=== PATIENT | female | born 1990 | race American Indian/Alaskan Native ===

== ENCOUNTER 2018-02-02 10:28 | Emergency (ER) | payer BC, MEDICAID ==
[2018-02-02 10:58] VITALS: BP 114/75
[2018-02-02 11:49] LABS: Bilirubin,Urine NEG (Negative); Blood,Urine NEG (Negative); Color,Urine Yellow (Yellow); Mucus,Urine FEW /HPF; Protein,Urine <15 mg/dL mg/dL (Negative); Urobilinogen,Urine < 2.0 mg/dL (<2.0); WBC,Urine < 1.0 /HPF (0.0-6.0)
[2018-02-02] MEDS ORDERED: TYLENOL PO ONE (12:05)
[2018-02-02] MEDS ORDERED: ZOFRAN IV ONE (12:05)
[2018-02-02] MEDS ORDERED: NACL 0.9% 1000 ML 1,000 ML IV ONE (12:05)
[2018-02-02 12:35] LABS: Basophils % (Auto) 0.1 % (0.0-1.8); Eosinophils # (Auto) 0.4 K/mm3 (0.0-0.4); Eosinophils % (Auto) 5.2 % (0.0-4.3); Hematocrit 39.7 % (30.3-42.9); Hemoglobin 13.7 gm/dl (10.1-14.3); Lymphocytes # (Auto) 0.8 K/mm3 (1.2-5.4); Lymphocytes % (Auto) 12.4 % (13.4-35.0); Mean Corpuscular HGB Conc 35 % (30-34); Mean Corpuscular Hemoglobin 32 pg (28-32); Mean Corpuscular Volume 94 fl (79-97); Monocytes # (Auto) 0.5 K/mm3 (0.0-0.8); Monocytes % (Auto) 6.7 % (0.0-7.3); Platelet Count 219 K/mm3 (140-440); Red Blood Count 4.23 M/mm3 (3.65-5.03); Red Cell Distribution Width 13.1 % (13.2-15.2)
[2018-02-02 12:52] LABS: BUN/Creatinine Ratio 8; Blood Urea Nitrogen 3 mg/dL (7-17); Calcium 9.4 mg/dL (8.4-10.2); Hemolysis Index 5
--- NOTE | 2018-02-02 14:07 | Emergency Department Report ---
Upper Respiratory HPI - HPI Chief Complaint: Dyspnea/Respdistress Stated Complaint: DIFFICULTY BREATHING Time Seen by Provider: 02/02/18 11:51 Duration: 1 week URI Symptoms: Rhinorrhea: Yes, Sore Throat: No, Ear Pain: No, Cough: Yes, Shortness of Breath: No, Sick Contacts: No, Unable to Take Fluids: Yes, Urine Output Abnormal: No, Listless Behavior: No Other History: This is a 27-year-old female 6 weeks nontoxic, well nourished in appearance, no acute signs of distress presents to the ED with c/o of productive cough, nausea, vomiting, rhinorrhea, nasal congestion x1 week. Patient describes productive cough as yellow mucus production. Patient denies any sick contact. Patient denies any recent travels, long car, recent hospital stays. Patient denies any calf pain or calf tenderness. Patient denies any chest pain, short of breath, fever, chills, nausea, vomiting, hemoptysis, numbness, tingling, headache or stiff neck. Patient denies any vaginal bleeding or abdominal pain. Patient deneis any allergies or PMH. - Home Meds and Allergies Home Medications: Previous Rx's Medication Instructions Recorded Last Taken Type Cyclobenzaprine HCl [Flexeril 5mg] 5 mg PO TID PRN #30 tablet 03/15/15 Unknown Rx HYDROcodone/APAP 5-325 [[place] 1 each PO Q6HR PRN #20 tablet 03/15/15 Unknown Rx 5/325] Ibuprofen [Motrin] 800 mg PO Q8H PRN #30 tablet 03/15/15 Unknown Rx Sulfamethoxazole/Trimethoprim 1 each PO BID #14 tablet 03/15/15 Unknown Rx [Bactrim Ds] Azithromycin [Zithromax Z-SHILOH] 250 mg PO DAILY #6 tablet 02/02/18 Unknown Rx Metoclopramide [Reglan] 10 mg PO TID PRN #30 tab 02/02/18 Unknown Rx Allergies/Adverse Reactions: Allergies Allergy/AdvReac Type Severity Reaction Status Date / Time No Known Allergies Allergy Verified 10/22/14 08:31 ED Review of Systems ROS: Stated complaint: DIFFICULTY BREATHING Other details as noted in HPI Constitutional: denies: chills, fever Eyes: denies: eye pain, eye discharge, vision change ENT: denies: ear pain, throat pain Respiratory: cough. denies: shortness of breath, wheezing Cardiovascular: denies: chest pain, palpitations Endocrine: no symptoms reported Gastrointestinal: nausea, vomiting. denies: abdominal pain, diarrhea Genitourinary: denies: urgency, dysuria, discharge Musculoskeletal: denies: back pain, joint swelling, arthralgia Skin: denies: rash, lesions Neurological: denies: headache, weakness, paresthesias Psychiatric: denies: anxiety, depression Hematological/Lymphatic: denies: easy bleeding, easy bruising ED Past Medical Hx - Past Medical History Previous Medical History?: No Hx Hypertension: No Hx Congestive Heart Failure: No Hx Diabetes: No Hx Deep Vein Thrombosis: No Hx Renal Disease: No Hx Sickle Cell Disease: No Hx Seizures: No Hx Asthma: No Hx COPD: No Hx HIV: No - Surgical History Past Surgical History?: No - Social History Smoking Status: Current Every Day Smoker Substance Use Type: Alcohol, Marijuana - Medications Home Medications: Home Medications Medication Instructions Recorded Confirmed Last Taken Type Cyclobenzaprine HCl [Flexeril 5mg] 5 mg PO TID PRN #30 tablet 03/15/15 Unknown Rx HYDROcodone/APAP 5-325 [[place] 1 each PO Q6HR PRN #20 tablet 03/15/15 Unknown Rx 5/325] Ibuprofen [Motrin] 800 mg PO Q8H PRN #30 tablet 03/15/15 Unknown Rx Sulfamethoxazole/Trimethoprim 1 each PO BID #14 tablet 03/15/15 Unknown Rx [Bactrim Ds] Azithromycin [Zithromax Z-SHILOH] 250 mg PO DAILY #6 tablet 02/02/18 Unknown Rx Metoclopramide [Reglan] 10 mg PO TID PRN #30 tab 02/02/18 Unknown Rx ED Bronchiolitis Physical Exam - Exam General: Vital signs noted. No distress. Alert and acting appropriately. Neurologic: Alert and oriented, no deficits. Musculoskeletal: Unremarkable. ED Physical Exam - General Limitations: No Limitations General appearance: alert, in no apparent distress - Head Head exam: Present: atraumatic, normocephalic - Eye Eye exam: Present: normal appearance Pupils: Present: normal accommodation - ENT ENT exam: Present: normal exam, mucous membranes moist - Neck Neck exam: Present: normal inspection, full ROM. Absent: tenderness, meningismus, lymphadenopathy - Respiratory Respiratory exam: Present: normal lung sounds bilaterally. Absent: respiratory distress, wheezes, rales, rhonchi, stridor, chest wall tenderness, accessory muscle use, decreased breath sounds, prolonged expiratory - Cardiovascular Cardiovascular Exam: Present: regular rate, normal rhythm, normal heart sounds. Absent: bradycardia, tachycardia, irregular rhythm, systolic murmur, diastolic murmur, rubs, gallop - GI/Abdominal GI/Abdominal exam: Present: soft, normal bowel sounds. Absent: distended, tenderness, guarding, rebound, rigid, diminished bowel sounds - Rectal Rectal exam: Present: deferred - Extremities Exam Extremities exam: Present: normal inspection, full ROM, normal capillary refill - Back Exam Back exam: Present: normal inspection, full ROM - Neurological Exam Neurological exam: Present: alert, oriented X3, normal gait - Psychiatric Psychiatric exam: Present: normal affect, normal mood - Skin Skin exam: Present: warm, dry, intact, normal color. Absent: rash ED Course Vital Signs 02/02/18 10:51 Temperature 98.7 F Pulse Rate 66 Blood Pressure 114/75 O2 Sat by Pulse 98 Oximetry - Reevaluation(s) Reevaluation #1: 02/02/18 14:04 Patient is speaking in full sentences with no signs of distress noted. - Consultations Consultation #1: 02/02/18 14:04 Patient has been consulted with Dr. Cano about patient history, physical exam , and labs and examined and screened patient and agrees to ED plan of care and discharge plan of care. ED Medical Decision Making - Lab Data Result diagrams: 02/02/18 11:56 02/02/18 11:56 - Medical Decision Making This is a 27-year-old female that presents with bronchitis. Patient is stable and was examined by me and Dr. Cano. Chest x-ray has not been obtained due to . Due to patient having symptoms of bronchitis and worsening I will treat patient empirically with zpak. Patient was instructed to increase hydration and rest. Patient received Zofran, 1 L normal saline in the ED. Patient stated that symptoms have resolved and nausea and vomiting. A by mouth challenge of 3 apple juices has been obtained and patient tolerated well. Labs within normal limits. D-dimmer negative. Vitals stable. Patient is nonfebrile and normal heart rate. Patient was instructed Follow-up with a primary care doctor in 3-5 days or if symptoms worsen and continue return to emergency room as soon as possible. At time time of discharge, the patient does not seem toxic or ill in appearance. No acute signs of distress noted. Patient agrees to discharge treatment plan of care. No further questions noted by the patient. Critical care attestation.: If time is entered above; I have spent that time in minutes in the direct care of this critically ill patient, excluding procedure time. ED Disposition Clinical Impression: Bronchiolitis Disposition: DC- TO HOME OR SELFCARE Is pt being admited?: No Does the pt Need Aspirin: No Condition: Stable Instructions: Acute Bronchitis (ED), Azithromycin (By mouth) Additional Instructions: Follow-up with a primary care doctor in 3-5 days or if symptoms worsen and continue return to emergency room as soon as possible. Prescriptions: Azithromycin [Zithromax Z-SHILOH] 250 mg PO DAILY #6 tablet Metoclopramide [Reglan] 10 mg PO TID PRN #30 tab PRN Reason: Nausea Referrals: PRIMARY CARE, [Primary Care Provider] - 3-5 Days MONSE WHITLEY MD [Staff Physician] - 3-5 Days [facility] [Outside] - 3-5 Days [facility] [Outside] - 3-5 Days Forms: Work/School Release Form(ED)
== END 2018-02-02 14:17 | disposition home or self-care (01) ==
LOC: ED 10:28
DX: J21.9 Acute bronchiolitis, unspecified (principal); F17.200 Nicotine dependence, unspecified, uncomplicated; F12.10 Cannabis abuse, uncomplicated; R11.2 Nausea with vomiting, unspecified
CPT/HCPCS: 36415; 80048; 81001; 85025; 85379; 96374; 99283; J2405; J7030

== ENCOUNTER 2019-03-06 10:09 | Outpatient (CLI) | payer MEDICAID ==
[2019-03-06] MEDS ORDERED: LACTATED RINGERS 500 ML IV ONE (10:58)
[2019-03-06 11:10] VITALS: BP 107/60
--- NOTE | 2019-03-06 12:21 | Event Note ---
Date: 03/06/19 c/o contractions, decreased FM and SOB. She woke up with SOB, no CP, no palpitations. Has a history of bronchitis, denies cough, fever chills n/v. Also history of GERD. Symptoms feel the same as GERD except worse. [place] like something was coming up. Now states babies moving well. O2 sat 100% RA. No s/s distress. No UC's, cervix closed, FHT's cat 1x2. She refused CXR. Exts: no edema, NT. Lungs: CTAB Will allow home GERD prevention strategies discussed. PTL precautions given. Keep appointment with office and MFM as scheduled.
== END 2019-03-06 13:36 | disposition home or self-care (01) ==
LOC: TRG 10:09
PROVIDERS: ATTEND Obstetrics & Gynecology
DX: O36.8120 Decreased fetal movements, second trimester, not applicable or unspecified (principal); O26.892 Other specified pregnancy related conditions, second trimester; R25.2 Cramp and spasm; R06.02 Shortness of breath; Z3A.26 26 weeks gestation of pregnancy; Z87.891 Personal history of nicotine dependence
CPT/HCPCS: 36415; 59025; 82731; J7120; 96360

== ENCOUNTER 2019-04-25 19:00 | Outpatient (CLI) | payer MEDICAID ==
[2019-04-25 20:05] VITALS: BP 109/61
--- NOTE | 2019-04-25 22:00 | Ultrasound Report ---
Limited OB ultrasound FINDINGS: Twin gestation is seen with the largest amniotic fluid pocket for baby B at 5.2 cm. Biophysical profile for baby A FINDINGS: breathing, movement, tone and qualitative SAROJ all score to a total of 8/8. hear t rate is 146 bpm Biophysical profile for baby B Baby B also scores 8/8. heart rate is 142 bpm Signer Name: Anthony Lake MD Signed: 04/25/2019 9:56 PM Workstation Name: [id number]
== END 2019-04-25 20:31 | disposition home or self-care (01) ==
LOC: TRG 19:00 → LD 19:42 → TRG 20:31
PROVIDERS: ATTEND Obstetrics & Gynecology
DX: O47.03 False labor before 37 completed weeks of gestation, third trimester (principal); Z3A.33 33 weeks gestation of pregnancy
CPT/HCPCS: 76815; 76819

== ENCOUNTER 2019-05-15 20:12 | Inpatient (IN) | payer MEDICAID ==
[2019-05-15] MEDS ORDERED: ZOFRAN IV PRN (21:32)
[2019-05-15] MEDS ORDERED: BRETHINE IVP PRN (21:32)
[2019-05-15] MEDS ORDERED: XYLOCAINE 2% INFILTRATI ONE (21:32)
[2019-05-15] MEDS ORDERED: MINERAL OIL PO PRN (21:32)
[2019-05-15] MEDS ORDERED: BRETHINE SUB-Q PRN (21:32)
[2019-05-15] MEDS ORDERED: PITOCin/NS 20 UNIT/1000ML DRIP 20 UNITS/1,000 ML BAG IV SCH (22:00)
[2019-05-15] MEDS ORDERED: LACTATED RINGERS 1,000 ML IV SCH (22:00)
[2019-05-15 22:26] LABS: Hematocrit 33.2 % (30.3-42.9); Hemoglobin 11.6 gm/dl (10.1-14.3); Mean Corpuscular HGB Conc 35 % (30-34); Mean Corpuscular Volume 96 fl (79-97); Platelet Count 149 K/mm3 (140-440); Red Blood Count 3.46 M/mm3 (3.65-5.03); Red Cell Distribution Width 13.5 % (13.2-15.2)
[2019-05-15] MEDS ORDERED: CERVIDIL VG ONE (23:15)
--- NOTE | 2019-05-16 00:07 | Ultrasound Report ---
US OB limited INDICATION / CLINICAL INFORMATION: twin IOL. COMPARISON: 05/13/2019 FINDINGS: Intrauterine twin . Both twins are in cephalic presentation. Ultrasound estimated gestational age 36 weeks 1 day IMPRESSION: 1. Both twins are in cephalic presentation. Signer Name: Angelito Bennett MD Signed: 05/16/2019 12:03 AM Workstation Name: [id number]
--- NOTE | 2019-05-16 00:22 | History and Physical Report ---
History of Present Illness Date of examination: 05/16/19 Date of admission: 05/15/19 20:12 Chief complaint: IOL per [facility] for twin gestation both with abnormal dopplers and twin B IUGR History of present illness: Menstrual History Regularity: regular Duration: 3 LMP: 09/04/2018 LMP reliability: definite LMP character: normal test type: urine test Date: 10/21/2018 BC at conception: none Planned ? no EDC Calculations LMP: 06/11/2019 Past History : 3 Term Births: 1 Premature Births: 0 Living Children: 1 Para: 1 Mult. Births: 0 Prev : 0 Aborta: 1 Elect. Ab: 1 Spont. Ab: 0 Ectopics: 0 # 1 Delivery date: 03/07/2015 Weeks Gestation: 41 Delivery type: Vaginal Anesthesia type: epidural Delivery location: [facility] Infant Sex: female weight: 7.25 Comments: postterm IOL; GBS+; # 2 Delivery date: 01/2018 Delivery type: EAB Comments: medcal Past Medical History: Reviewed history from 01/23/2014 and no changes required: Negative Past Medical History Past Surgical History: Reviewed history from 07/11/2014 and no changes required: Right breast biopsy 2009- benign Family History Summary: Reviewed history Last on 01/11/2016 and no changes required:10/21/2018 General Comments - FH: Family History of Asthma Family History of Diabetes Family History of Hypertension FamHx Cancer-unknown type Social History: Marital Status: Children: 1 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 of genital herpes: no Genetic History Congenital Heart Defect: Mom: no Dad: no Shade Disease: Mom: no Dad: no Thalassemia Mom: no Dad: no Neural Tube Defect Mom: no Dad: no Down's Syndrome Mom: no Dad: no Chivo-Sachs Mom: no Dad: no Sickle Cell Disease/Trait Mom: no Dad: no Hemophilia Mom: no Dad: no Muscular Dystrophy Mom: no Dad: no Cystic Fibrosis Mom: no Dad: no [place] Chorea Mom: no Dad: no Mental Retardation Mom: no Dad: no Fragile X Mom: no Dad: no Other Genetic/Chromosomal Disorder Mom: no Dad: no Child w/other defect Mom: no Dad: no Active Medications (reviewed today): LO LOESTRIN FE 1 MG-10 MCG / 10 MCG ORAL TABLET (NORETHIN-ETH ESTRAD-FE BIPHAS) 1 po q day as directed TYLENOL WITH CODEINE #3 300-30 MG ORAL TABLET (ACETAMINOPHEN-CODEINE) 1-2 po q 4 hrs prn pain IBUPROFEN 800 MG ORAL TABLET (IBUPROFEN) NEXPLANON 68 MG SUBCUTANEOUS IMPLANT (ETONOGESTREL) Current Allergies (reviewed today): No known allergies Past History Past Medical History: other (see HPI) Past Surgical History: other (see HPI) 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) Family/Genetic History: other (see HPI) Social history: other (see HPI) - Obstetrical History Expected Date of Delivery: 06/13/19 Actual Gestation: 36 Week(s) 0 Day(s) : 3 Para: 1 Hx # Term Pregnancies: 1 Number of Pregnancies: 0 Spontaneous Abortions: 0 Induced : 1 Number of Living Children: 1 Medications and Allergies Allergies Allergy/AdvReac Type Severity Reaction Status Date / Time No Known Allergies Allergy Verified 10/22/14 08:31 Home Medications Medication Instructions Recorded Confirmed Last Taken Type Cyclobenzaprine HCl [Flexeril 5mg] 5 mg PO TID PRN #30 tablet 03/15/15 Unknown Rx HYDROcodone/APAP 5-325 [[place] 1 each PO Q6HR PRN #20 tablet 03/15/15 Unknown Rx 5/325] Ibuprofen [Motrin] 800 mg PO Q8H PRN #30 tablet 03/15/15 Unknown Rx Sulfamethoxazole/Trimethoprim 1 each PO BID #14 tablet 03/15/15 Unknown Rx [Bactrim Ds] Azithromycin [Zithromax Z-SHILOH] 250 mg PO DAILY #6 tablet 02/02/18 Unknown Rx Metoclopramide [Reglan] 10 mg PO TID PRN #30 tab 02/02/18 Unknown Rx Active Meds: Active Medications Ephedrine Sulfate (Ephedrine Sulfate) 10 mg IV Q2M PRN PRN Reason: Hypotension Oxytocin/Sodium Chloride (Pitocin/Ns 20 Unit/1000ml Drip) 20 units in 1,000 mls @ 125 mls/hr IV DIRECT ROSALINO Lactated Ringer's (Lactated Ringers) 1,000 mls @ 125 mls/hr IV DIRECT ROSALINO Mineral Oil (Mineral Oil) 30 ml PO QHS PRN PRN Reason: Constipation Ondansetron HCl (Zofran) 4 mg IV Q8H PRN PRN Reason: Nausea And Vomiting Terbutaline Sulfate (Brethine) 0.25 mg SUB-Q ONCE PRN PRN Reason: Hyperstimulation/Hypertonicity Terbutaline Sulfate (Brethine) 0.25 mg IVP ONCE PRN PRN Reason: Hyperstimulation/Hypertonicity Review of Systems All systems: negative Genitourinary: contractions - Vital Signs Vital signs: Vital Signs Pulse BP 89 121/66 05/15/19 20:38 05/15/19 20:38 Temp Pulse Resp BP Pulse Ox 89 121/66 05/15/19 20:38 05/15/19 20:38 - Physical Exam Breasts: Cardiovascular: Regular rate, Normal S1, Normal S2 Lungs: Positive: Clear to auscultation, Normal air movement Abdomen: Positive: normal appearance, soft, normal bowel sounds. Negative: distention, tenderness Genitourinary (Female): Positive: normal external genitalia, normal perenium Vulva: both: normal Vagina: Positive: normal moisture. Negative: discharge Cervix: Negative: lesion, discharge Uterus: Positive: normal size, normal contour Adnexa: both: normal Anus/Rectum: Positive: normal perianal skin, heme negative. Negative: rectal mass, hemorrhoids Extremities: Deep Tendon Reflex Grade: Normal +2 - Obstetrical FHR: auscultation normal Uterine Contraction Monitor Mode: External Cervical Dilatation: 0 station: -3 Uterine Contraction Pattern: Irregular Uterine Tone Measurement Phase: Contraction Uterine Contraction Intensity: Mild Results Result Diagrams: 05/15/19 21:25 Abnormal lab results 05/15/19 Range/Units 21:25 RBC 3.46 L (3.65-5.03) M/mm3 MCH 33 H (28-32) pg MCHC 35 H (30-34) % All other labs normal. Ultrasound: report reviewed (both cephalic) Assessment and Plan 28 y.o. IUP at 36w 1d presents for scheduled IOL per recommendation of MFM for abnormal dopplers of both twin A and twin B, IUGR of twin B. Routine admission orders in EMR. GBS is negative. SVE closed. Cervidil placed by RN. Will continue to monitor. Anticipate .
--- NOTE | 2019-05-16 03:47 | Event Note ---
Date: 05/16/19 Called to room by RN d/t pt c/o of "being frustrated and took monitors off". Pt c/o monitors being uncomfortable, she has taken monitors and belts off and they are lying on the floor. Pt reports she is hot and she wants to get out of bed. DWP why it is necessary to monitor babies while medication is in place. Offered to attempt to adjust monitors so we can monitor her while she is OOB, offered pain medications, but explained that she will have to be in bed d/t fall risk after receiving IV narcotics. She does not respond verbally to offers or suggestions to assist in comforting her. Reviewed reason for recommendation of IOL by M and explained to patient that she has the right to refuse monitoring but that we will have to remove the cervidil. Patient ambulated to the bathroom. Will assess pts willingness to replace monitors when she returns to bed. After, RN reports she is requesting medication for pain. Pt is back in bed, monitors in place. SVE yields no change in SVE, offered to remove cervidil d/t pt stating "its making my vagina hurt". Patient declines and elects to leave cervidil in place. Order for stadol one time dose to be given IV, now. Patient agrees to continue with current POC.
[2019-05-16] MEDS ORDERED: STADOL IV ONE (03:48)
[2019-05-16] MEDS ORDERED: STADOL ONE (03:50)
--- NOTE | 2019-05-16 05:38 | Progress Note ---
Assessment and Plan Pt c/o increasing pain and pressure with ctx SVE 2,80,-1 ISE clear fluid noted Bolus for epidural Fentanyl given to help pt relax Re-eval as needed Subjective - Subjective Date of service: 05/16/19 (ISE applied Clear fluid) Principal diagnosis: Di/Di twin gestation @ 36w IOL Patient reports: contractions Objective - Vital Signs Vital Signs: Vital Signs - 12hr 05/15/19 05/16/19 05/16/19 20:38 02:04 02:06 Pulse Rate 89 67 72 Respiratory Rate Blood Pressure 121/66 O2 Sat by Pulse 94 84 Oximetry 05/16/19 05/16/19 05/16/19 02:11 02:13 02:16 Pulse Rate 76 74 Respiratory Rate Blood Pressure O2 Sat by Pulse 100 90 99 Oximetry 05/16/19 05/16/19 05/16/19 02:21 02:26 02:31 Pulse Rate 75 76 76 Respiratory Rate Blood Pressure O2 Sat by Pulse 100 99 99 Oximetry 05/16/19 05/16/19 05/16/19 02:36 02:41 02:46 Pulse Rate 85 70 79 Respiratory Rate Blood Pressure O2 Sat by Pulse 99 99 98 Oximetry 05/16/19 05/16/19 05/16/19 02:51 02:56 03:01 Pulse Rate 73 77 70 Respiratory Rate Blood Pressure O2 Sat by Pulse 98 99 99 Oximetry 05/16/19 05/16/19 05/16/19 03:06 03:11 03:16 Pulse Rate 77 76 74 Respiratory Rate Blood Pressure O2 Sat by Pulse 99 100 100 Oximetry 05/16/19 05/16/19 05/16/19 03:18 03:23 03:28 Pulse Rate 39 L 115 H Respiratory Rate Blood Pressure O2 Sat by Pulse 82 L 69 L 81 L Oximetry 05/16/19 05/16/19 05/16/19 03:35 03:42 04:09 Pulse Rate 69 Respiratory Rate Blood Pressure 133/68 O2 Sat by Pulse 83 L 94 Oximetry 05/16/19 05/16/19 05/16/19 04:38 05:08 05:12 Pulse Rate 66 68 Respiratory 16 Rate Blood Pressure O2 Sat by Pulse 100 99 Oximetry 05/16/19 05/16/19 05/16/19 05:17 05:23 05:28 Pulse Rate 70 75 75 Respiratory Rate Blood Pressure O2 Sat by Pulse 100 99 99 Oximetry - Exam Breasts: deferred Cardiovascular: Regular rate Lungs: Normal air movement Abdomen: Present: normal appearance, soft. Absent: distention, tenderness Uterus: Present: normal FHR: auscultation normal Uterine Contraction Monitor Mode: Internal Cervical Dilatation: 2 (ISE on Twin A ) Cervical Effacement Percentage: 80 (Cervidil removed) station: -1 Uterine Contraction Pattern: Regular Uterine Tone Measurement Phase: Resting Uterine Contraction Intensity: Moderate Extremities: normal Deep Tendon Reflex Grade: Normal +2 - Labs Labs: Abnormal Labs 05/15/19 21:25 RBC 3.46 L MCH 33 H MCHC 35 H Laboratory Results - last 24 hr 05/15/19 05/15/19 21:25 21:25 WBC 6.9 RBC 3.46 L Hgb 11.6 Hct 33.2 MCV 96 MCH 33 H MCHC 35 H RDW 13.5 Plt Count 149 Blood Type O POSITIVE Antibody Screen Negative
[2019-05-16] MEDS ORDERED: SUBLIMAZE ONE (05:51)
--- NOTE | 2019-05-16 06:38 | Progress Note ---
Assessment and Plan notified of cervical chg. Pt comfortable with epidural Anticipate delivery. Subjective - Subjective Date of service: 05/16/19 (epidural placed) Principal diagnosis: Di/Di twin gestation @ 36w IOL Patient reports: movement normal, contractions Objective - Vital Signs Vital Signs: Vital Signs - 12hr 05/15/19 05/16/19 05/16/19 20:38 02:04 02:06 Pulse Rate 89 67 72 Respiratory Rate Blood Pressure 121/66 O2 Sat by Pulse 94 84 Oximetry 05/16/19 05/16/19 05/16/19 02:11 02:13 02:16 Pulse Rate 76 74 Respiratory Rate Blood Pressure O2 Sat by Pulse 100 90 99 Oximetry 05/16/19 05/16/19 05/16/19 02:21 02:26 02:31 Pulse Rate 75 76 76 Respiratory Rate Blood Pressure O2 Sat by Pulse 100 99 99 Oximetry 05/16/19 05/16/19 05/16/19 02:36 02:41 02:46 Pulse Rate 85 70 79 Respiratory Rate Blood Pressure O2 Sat by Pulse 99 99 98 Oximetry 05/16/19 05/16/19 05/16/19 02:51 02:56 03:01 Pulse Rate 73 77 70 Respiratory Rate Blood Pressure O2 Sat by Pulse 98 99 99 Oximetry 05/16/19 05/16/19 05/16/19 03:06 03:11 03:16 Pulse Rate 77 76 74 Respiratory Rate Blood Pressure O2 Sat by Pulse 99 100 100 Oximetry 05/16/19 05/16/19 05/16/19 03:18 03:23 03:28 Pulse Rate 39 L 115 H Respiratory Rate Blood Pressure O2 Sat by Pulse 82 L 69 L 81 L Oximetry 05/16/19 05/16/19 05/16/19 03:35 03:42 04:09 Pulse Rate 69 Respiratory Rate Blood Pressure 133/68 O2 Sat by Pulse 83 L 94 Oximetry 05/16/19 05/16/19 05/16/19 04:38 05:08 05:12 Pulse Rate 66 68 Respiratory 16 Rate Blood Pressure O2 Sat by Pulse 100 99 Oximetry 05/16/19 05/16/19 05/16/19 05:17 05:23 05:28 Pulse Rate 70 75 75 Respiratory Rate Blood Pressure O2 Sat by Pulse 100 99 99 Oximetry 05/16/19 05/16/19 05/16/19 05:32 05:59 06:11 Pulse Rate 67 76 80 Respiratory Rate Blood Pressure 131/85 O2 Sat by Pulse 100 100 Oximetry 05/16/19 05/16/19 05/16/19 06:14 06:16 06:21 Pulse Rate 68 75 70 Respiratory Rate Blood Pressure O2 Sat by Pulse 93 98 100 Oximetry 05/16/19 05/16/19 05/16/19 06:23 06:26 06:30 Pulse Rate 67 73 66 Respiratory Rate Blood Pressure 140/87 142/90 128/85 O2 Sat by Pulse 99 Oximetry 05/16/19 05/16/19 06:31 06:32 Pulse Rate 69 67 Respiratory Rate Blood Pressure 138/87 O2 Sat by Pulse 99 Oximetry - Exam Breasts: deferred Cardiovascular: Regular rate Lungs: Normal air movement Abdomen: Present: normal appearance, soft. Absent: distention, tenderness Uterus: Present: normal FHR: auscultation normal Uterine Contraction Monitor Mode: Internal (Baby A) Cervical Dilatation: 7 Cervical Effacement Percentage: 100 station: -1 Uterine Contraction Pattern: Regular Uterine Tone Measurement Phase: Resting Uterine Contraction Intensity: Moderate Extremities: normal Deep Tendon Reflex Grade: Normal +2 - Labs Labs: Abnormal Labs 05/15/19 21:25 RBC 3.46 L MCH 33 H MCHC 35 H Laboratory Results - last 24 hr 05/15/19 05/15/19 21:25 21:25 WBC 6.9 RBC 3.46 L Hgb 11.6 Hct 33.2 MCV 96 MCH 33 H MCHC 35 H RDW 13.5 Plt Count 149 Blood Type O POSITIVE Antibody Screen Negative
[2019-05-16] MEDS ORDERED: NARCAN 2 MG/2 ML IV PRN (06:39)
--- NOTE | 2019-05-16 06:39 | Anesthesia Consultation ---
Anesthesia Consult and Med Hx Date of service: 05/16/19 - Airway Anesthetic Teeth Evaluation: Chipped ROM Head & Neck: Adequate Mental/Hyoid Distance: Adequate Mallampati Class: Class II Intubation Access Assessment: Probably Good - Pulmonary Exam CTA: Yes - Cardiac Exam Cardiac Exam: RRR - Pre-Operative Health Status ASA Pre-Surgery Classification: ASA2 Proposed Anesthetic Plan: Epidural - Pulmonary Hx Asthma: No COPD: No Hx Pneumonia: No - Cardiovascular System Hx Hypertension: No - Central Nervous System Hx Seizures: No Hx Psychiatric Problems: No - Endocrine Hx Renal Disease: No Hx End Stage Renal Disease: No Hx Hypothyroidism: No Hx Hyperthyroidism: No - Hematic Hx Anemia: No Hx Sickle Cell Disease: No - Other Systems Hx Alcohol Use: No
[2019-05-16] MEDS ORDERED: fentaNYL-BUPIV 2 MCG/ML-0.125% 200 MCG/100 ML BAG EPIDURAL SCH (07:00)
--- NOTE | 2019-05-16 08:31 | Procedure Note ---
OB Delivery Note - Delivery Date of Delivery: 05/16/19 Surgeon: WES SAN (present for delivery) Hospice Rn: FELICITAS DAVIS Estimated blood loss: 300cc - Vaginal Delivery presentation: vertex Intrapartum events: other(please specify) (IOL @ 36 w Vtx/Vtx Di/Di twin Baby B IUGR) Delivery induction: cervidil Delivery augmentation: rupture of membranes Delivery monitor: internal FHT (Baby A) Route of delivery: Delivery placenta: spontaneous Delivery cord: 3 umbilical vessels Episiotomy: none Delivery laceration: none Anesthesia: epidural Delivery comments: Pt c/o rectal pressure NICU and RT called to room [place] beds prepared live born male OP with minimal pushing Baby to mom's abdomen skin to skin Single cord clamp placed on baby and umbilical cord. Baby passed to Nicu team. AROM bag on Baby B bloody fluid Poss abrution Baby B girl delivered with 2 pushes OA Floppy cord clamped and cut passed to NICU team. 2 clamps placed on umbilical cord. Placentas sent to pathology Cord blood obtained on both babes respectively. Pitocin started IVFs Mom and babies remain LDR stable - A at 1 minute: 8 at 5 minutes: 9 Gender: Male (6-1) B at 1 minute: 4 at 5 minutes: 8 Infant Gender: Female (wgt 4-7)
[2019-05-16] MEDS ORDERED: IBUPROFEN PO SCH (09:00)
[2019-05-16] MEDS ORDERED: BENADRYL PO PRN (09:30)
[2019-05-16] MEDS ORDERED: LANSINOH TP PRN (09:30)
[2019-05-16] MEDS ORDERED: TUCKS PAD TP PRN (09:30)
[2019-05-16] MEDS ORDERED: TYLENOL PO PRN (09:30)
[2019-05-16] MEDS ORDERED: PHENERGAN PO PRN (09:30)
[2019-05-16] MEDS ORDERED: SODIUM CHLORIDE FLUSH SYRINGE 10 ML IV PRN (10:00)
[2019-05-16] MEDS ORDERED: DULCOLAX PR PRN (10:00)
[2019-05-16] MEDS: COLACE PO SCH ×2 (10:56→21:37)
[2019-05-16] MEDS: IBUPROFEN PO SCH ×2 (10:56→17:05)
[2019-05-16] MEDS: PRENATAL VITAMIN PO SCH (10:56)
[2019-05-16] MEDS: NORCO 5/325 PO PRN ×2 (18:32→23:56)
[2019-05-16 21:08] LABS: Hematocrit 32.6 % (30.3-42.9); Hemoglobin 11.2 gm/dl (10.1-14.3)
[2019-05-16] MEDS ORDERED: MILK OF MAGNESIA PO PRN (22:00)
[2019-05-17] MEDS: IBUPROFEN PO SCH ×4 (05:31→23:42)
[2019-05-17] MEDS ORDERED: BOOSTRIX IM ONE (06:00)
--- NOTE | 2019-05-17 08:56 | Progress Note ---
<FELICITAS DAVIS - Last Filed: 05/17/19 09:33> Assessment and Plan Pt resting in bed quietly. Reports back and ABD pain that is controlled with medication. VSSAF with one outlier BP. PP H/H pending to be drawn today. FF at umbilicus, moderate bleeding. Attempted to BF but mainly pumping because pt states "I am not producing enough milk". Instructed pt re: normal milk supply production with consistent stimulation. Twins at the bedside. Desires to be D/C when able. - Patient Problems (1) Spontaneous vaginal delivery Onset Date: ~05/16/19 Current Visit: No Status: Acute Plan to address problem: Day #1 at 36w2d. Continue pathway. Subjective - Subjective Date of service: 05/17/19 ( Day #1) Principal diagnosis: Di/Di twin gestation @ 36w IOL Patient reports: appetite normal, voiding normally, pain well controlled (taking pain medication prn), ambulating normally : doing well Objective - Vital Signs Latest vital signs: Vital Signs Temp Pulse Resp BP BP Pulse Ox 05/17/19 01:37 97.9 F 66 20 110/56 98 05/16/19 16:32 97.6 F 61 18 115/64 05/16/19 11:59 97.7 F 64 18 120/57 05/16/19 10:35 97.9 F 63 18 117/64 Intake and Output 05/16/19 05/17/19 05/17/19 22:59 06:59 14:59 Intake Total 720 Output Total 400 Balance 320 Intake: Oral 720 Output: Urine 400 Void 400 Other: Total, Intake Amount 240 Total, Output Amount 400 # Voids Void 1 - Exam Breasts: Present: normal Cardiovascular: Present: Regular rate Lungs: Present: Normal air movement Abdomen: Present: normal appearance, soft Uterus: Present: normal, firm, fundal height at umbilicus Extremities: Present: normal <THUAN,REMY D - Last Filed: 05/17/19 10:44> Assessment and Plan Pt resting in bed. Adamant about d/c home today. Desires Nexplanon. H/H 10.5/31.9. Will d/c this PM if stable. Objective - Vital Signs Latest vital signs: Vital Signs Temp Pulse Resp BP BP Pulse Ox 05/17/19 01:37 97.9 F 66 20 110/56 98 05/16/19 16:32 97.6 F 61 18 115/64 05/16/19 11:59 97.7 F 64 18 120/57 Intake and Output 05/16/19 05/17/19 05/17/19 22:59 06:59 14:59 Intake Total 720 Output Total 400 Balance 320 Intake: Oral 720 Output: Urine 400 Void 400 Other: Total, Intake Amount 240 Total, Output Amount 400 # Voids Void 1
[2019-05-17] MEDS: PRENATAL VITAMIN PO SCH (10:37)
[2019-05-17] MEDS: COLACE PO SCH ×2 (10:37→23:42)
--- NOTE | 2019-05-17 10:48 | Discharge Summary ---
Providers - Providers Date of Admission: 05/15/19 20:12 Date of discharge: 05/17/19 Attending physician: REMY LAROSE Primary care physician: DIONISIO URBINA Hospitalization Reason for admission: induction of labor (Twins/IUGR and abnormal dopplers) Delivery: Episiotomy: none Laceration: none Other procedures: none complications: none Discharge diagnosis: delivery [place] baby: twins Hospital course: Normal Condition at discharge: Good Disposition: DC-01 TO HOME OR SELFCARE - Discharge Diagnoses (1) Twin delivered vaginally Status: Acute Plan - Provider Discharge Summary Activity: no sex for 6 weeks, no heavy lifting 4 weeks, no strenuous exercise Diet: routine Instructions: routine Additional instructions: [] Smoking cessation referral if applicable(refer to patient education folder for contact #) [] Refer to [facility] Booklet Call your doctor immediately for: * Fever > 100.5 * Heavy vaginal bleeding ( >1 pad per hour) * Severe persistent headache * Shortness of breath * Reddened, hot, painful area to leg or breast * Drainage or odor from incision. * Keep incision clean and dry at all times and follow doctor's instructions regarding bathing/showering - Follow up plan Follow up: DIONISIO URBINA MD [Primary Care Provider] - (Call today to make appointment for circumcision. Make an appointment for your evaluation in 4 weeks.)
[2019-05-17] MEDS ORDERED: M-M-R II VACCINE SUB-Q ONE (11:00)
[2019-05-18] MEDS: NORCO 5/325 PO PRN ×2 (03:22→10:55)
[2019-05-18] MEDS: IBUPROFEN PO SCH ×2 (06:23→10:55)
--- NOTE | 2019-05-18 07:55 | Event Note ---
Date: 05/18/19 (pt in very good spirits) Pt stable VSS H&H stable No s/sx of anemia Pt request rx for reglan to help with milk supply Depo given @ D/C
[2019-05-18 08:03] VITALS: BP 118/54
[2019-05-18] MEDS ORDERED: DEPO-PROVERA (CONTRACEPTION) IM NR (08:30)
[2019-05-18] MEDS: COLACE PO SCH (10:54)
[2019-05-18] MEDS: PRENATAL VITAMIN PO SCH (10:54)
== END 2019-05-18 12:00 | disposition home or self-care (01) | DRG 775 ==
LOC: LD 20:12 → OB 05-16 10:25
PROVIDERS: ADMIT Obstetrics & Gynecology; ATTEND Obstetrics & Gynecology
PROC: 10E0XZZ Delivery of Products of Conception, External Approach (ICD-10-PCS; principal; 2019-05-16)
PROC: 3E0R3BZ Introduction of Anesthetic Agent into Spinal Canal, Percutaneous Approach (ICD-10-PCS; 2019-05-16)
PROC: 00HU33Z Insertion of Infusion Device into Spinal Canal, Percutaneous Approach (ICD-10-PCS; 2019-05-16)
PROC: 3E0P7VZ Introduction of Hormone into Female Reproductive, Via Natural or Artificial Opening (ICD-10-PCS; 2019-05-16)
PROC: 3E0234Z Introduction of Serum, Toxoid and Vaccine into Muscle, Percutaneous Approach (ICD-10-PCS; 2019-05-17)
DX: O36.5932 Maternal care for other known or suspected poor fetal growth, third trimester, fetus 2 (principal); O30.043 Twin pregnancy, dichorionic/diamniotic, third trimester; O60.14X2 Preterm labor third trimester with preterm delivery third trimester, fetus 2; Z37.0 Single live birth; Z3A.36 36 weeks gestation of pregnancy; Z37.2 Twins, both liveborn; Z23 Encounter for immunization; Z82.5 Family history of asthma and other chronic lower respiratory diseases; Z83.3 Family history of diabetes mellitus; Z82.49 Family history of ischemic heart disease and other diseases of the circulatory system; Z80.9 Family history of malignant neoplasm, unspecified; Z79.899 Other long term (current) drug therapy
CPT/HCPCS: 36415; 59200; 76815; 85014; 85018; 85027; 86592; 86850; 86900; 86901; 88307; G0378; J0595; J2405; J2590; J3010; J7120